=== PATIENT | male | born 1935 | race Caucasian/White ===

== ENCOUNTER → 2017-12-13 | Outpatient (CLI) | payer OTHER | END | disposition home or self-care (01) | LOC: C.LABPBG 11:27 | PROVIDERS: ATTEND Urology | DX: Z00.00 Encounter for general adult medical examination without abnormal findings (principal) ==

== ENCOUNTER 2023-06-08 09:07 | Observation (INO) ==
[2023-06-08 09:36] LABS: Basophils # (auto) 0.05 K/uL (0-0.2); Basophils % (auto) 0.5 %; Eosinophils # (auto) 0.25 K/uL (0-0.50); Eosinophils % (auto) 2.7 %; Hematocrit (blood only) 38.2 % (42.0-52.0); Hemoglobin 13.5 g/dl (14.0-18.0); Immature Granulocytes # (auto) 0.04 K/uL (0.01-0.20); Immature Granulocytes % (auto) 0.4 %; Lymphocytes # (auto) 2.39 K/uL (1.2-3.4); Lymphocytes % (auto) 25.6 %; Mean Corpuscular Hgb Conc 35.3 g/dL (32.0-36.0); Mean Corpuscular Volume 93.4 fL (80.0-100.0); Mean Platelet Volume 8.7 fL (9.4-12.4); Monocytes # (auto) 0.89 K/uL (0.11-0.59); Monocytes % (auto) 9.5 %; Neutrophils # (auto) 5.73 K/uL (1.40-6.50); Neutrophils % (auto) 61.3 %; Platelet Count 195 K/uL (130-400); RDW Coefficient of Variation 13.6 % (11.5-14.5); RDW Standard Deviation 46.3 fL (36.4-46.3); Red Blood Count 4.09 M/uL (4.70-6.10); White Blood Count 9.35 K/ul (4.8-10.8)
[2023-06-08 09:45] LABS: INR 1.5 (0.9-1.1); Prothrombin Time 15.8 Seconds (9.0-12.0)
--- NOTE | 2023-06-08 09:47 | XRay Report ---
SINGLE VIEW CHEST CLINICAL HISTORY: Dyspnea FINDINGS: An AP, portable, upright chest radiograph is compared to chest x-ray and chest CT dated 05/02. The patient is status post midline sternotomy. The heart is enlarged noting atherosclerotic ca lcification of the thoracic aorta. The pulmonary vasculature is noncongested. A large density along t he right superior mediastinal border corresponds to thyroid goiter when correlated with the recent est CT. There is bibasilar scarring/atelectasis. No airspace consolidation or large pleural effusion is identified. No pneumothorax is seen. The skeletal structures are osteopenic. The bony thorax is gr ossly intact. Surgical clips are noted in the upper abdomen. IMPRESSION: Cardiomegaly with no acute cardiopulmonary abnormality identified. ACT 112: Negative or not required by law. Electronically signed by: Washington Anna M.D. 06/08/2023 9:44 AM
[2023-06-08 09:51] LABS: Albumin Level 2.5 gm/dl (3.4-5.0); Bilirubin,Total 2.5 mg/dl (0.2-1.0); Potassium 3.8 mmol/L (3.5-5.1)
[2023-06-08] MEDS ORDERED: SODIUM CHLORIDE 0.9% 1000ML 500 ML IV ONE (09:52)
--- NOTE | 2023-06-08 09:54 | Emergency Department Note ---
Impression & Plan Edema ADMIT ED Provider Note HPI: The patient is an 87-year-old gentleman who presents emergency department with a chief complaint of abdominal bloating and lower extremity edema. Patient states that the symptoms seem to have been worsening over about the past 1 to 2 weeks. Patient was seen today by his hematology/oncology provider, Dr. Chavez, who noted concern about the patient's abdominal bloating and fluid retention and therefore sent the patient to the ED to be assessed. On arrival to the ED the patient is in no acute distress, he tells me that he has been having some issues recently after he eats he feels a sensation of bloating. On arrival here to the ED the patient is otherwise in no acute distress, he states he does get some shortness of breath when he ambulates but at baseline he does not feel shortness of breath. He denies any chest pain. Patient is otherwise hemodynamically stable on arrival ROS: - Per HPI Differential Diagnosis: Spontaneous bacterial peritonitis, anasarca, acute CHF exacerbation/pulmonary edema, amongst other potential pathologies. *Outpatient medications and allergy history reviewed. *Pertinent external medical records reviewed. PE: General: Alert HEENT: Normocephalic, trachea midline Eyes: Extraocular eye movement is intact, no scleral erythema Pulmonary: Clear to auscultation bilaterally, no wheezing Cardio: Regular rate and rhythm GI: Abdomen is soft to palpation, mild distention, nontender : No suprapubic tenderness MSK: No evidence of trauma or malformation of the extremities, 2-3+ LE edema b/l Skin: No evidence of rash Neuro: Alert, no focal deficits Psychiatric: Cooperative international controller: (As interpreted by myself): - An order was placed for continuous cardiac monitoring - Patient was noted to be in sinus rhythm with a rate of 90 EKG: (As interpreted by myself): Rate: 86 Rhythm: Normal sinus rhythm Intervals: Within normal limits ST changes: No ST elevation Time: 0918 Medical Decision Making: Patient is in no acute distress on arrival, IV was established and lab work ordered, 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 Lab work shows no leukocyto sis, hemoglobin is stable at 13.5, platelet count is normal, CMP does not show any critical findings, slight hyponatremia 133, bilirubin is elevated at 2.5 likely consistent with the patient's nonspecific liver lesions. BNP is mildly elevated at 135, troponin is negative, EKG shows normal sinus rhythm without any acute ischemic changes. Chest x-ray does not show any overt fluid overload, CT imaging of the abdomen pelvis was obtained that shows moderate ascites but no evidence of obstruction, no evidence of gastric outlet syndrome. I did touch base with the patient's hematology provider, Dr. Chavez, who made arrangements for intervention radiology to perform paracentesis while the patient is here as an inpatient for both diagnostic and therapeutic purposes. [facility] hospitalist service was consulted for admission, case was discussed with Terence Dunlap PA-C, and the patient was placed for admission in stable condition Consultants: - Hospitalist service, Dr. Alcala -Hematology, Dr. Chavez Disposition discussion held by myself with: Patient and family at bedside Diagnosis: 1. Peripheral edema, acute 2. Ascites, acute 3. Dyspnea on exertion 4. Hyponatremia, mild 5. Liver lesions, nonspecific Disposition: Admission Black Liang DO Emergency Medicine Past Med/Surg History Medical History Hypertension Surgical History History of appendectomy S/P CABG (coronary artery bypass graft) Social History Smoking Status: Never smoker Hx Alcohol Use: Yes Alcohol type: beer Hx Substance Use: No Preferred Language: Polish Communication Ability: Effective Finisher Map And Chart Required: No Beliefs That Will Affect Care: None Current Living Situation: Spouse Feels Safe at Home: Yes Allergies Allergies Allergy/AdvReac Type Severity Reaction Status Date / Time oxycodone [From OxyContin] AdvReac Intermediate Vomiting Verified 06/08/23 09:38 Home Meds Home Medications Medication Instructions Recorded Confirmed aspirin 81 mg tablet,delayed 162 mg PO HS 04/12/23 06/08/23 release cholecalciferol (vitamin D3) 50 50 mcg PO DAILY 04/12/23 06/08/23 mcg (2,000 unit) capsule (Vitamin D3) losartan 25 mg tablet 25 mg PO QAM 04/12/23 06/08/23 simvastatin 10 mg tablet 10 mg PO HS 04/12/23 06/08/23 furosemide 20 mg tablet 20 mg PO DAILY 05/02/23 06/08/23 lorazepam 1 mg tablet 1 mg PO HS PRN Sleep 06/08/23 06/08/23 Results & Data (ED) Vital Signs Vital Signs - 24 hr 06/08/23 09:08 06/08/23 09:19 06/08/23 09:27 Temperature 36.8 C Temperature Source Temporal Artery Scan Pulse Rate 91 H 89 Pulse Rate [Left Apical] 88 Pulse Rate from SpO2 Sensor Pulse Rhythm Regular Regular Pulse Rhythm [Left Apical] Regular Pulse Strength [Left Apical] Normal Respiratory Rate 20 16 Respiratory Effort / Characteristics Non-Labored Spontaneous Non-Labored Spontaneous Respiratory Depth Normal Normal Respiratory Pattern Regular Blood Pressure 110/58 L Blood Pressure [Right Arm] 127/59 L Blood Pressure Mean 75 Blood Pressure Mean [Right Arm] 81 Blood Pressure Position [Right Arm] Semi-fowlers Pulse Oximetry 94 94 95 Oxygen Delivery Method Room Air Room Air Sepsis Recent Fever Within 48 Hours No Sepsis New/Unexplained Change in Mental Status No Sepsis Action Taken by Nursing No Action Required 06/08/23 09:26 06/08/23 09:21 06/08/23 09:23 Temperature Temperature Source Pulse Rate 92 H 92 H 89 Pulse Rate [Left Apical] Pulse Rate from SpO2 Sensor 91 H 89 Pulse Rhythm Pulse Rhythm [Left Apical] Pulse Strength [Left Apical] Respiratory Rate 19 16 Respiratory Effort / Characteristics Respiratory Depth Respiratory Pattern Blood Pressure 127/59 L Blood Pressure [Right Arm] Blood Pressure Mean 81 Blood Pressure Mean [Right Arm] Blood Pressure Position [Right Arm] Pulse Oximetry 94 94 Oxygen Delivery Method Sepsis Recent Fever Within 48 Hours Sepsis New/Unexplained Change in Mental Status Sepsis Action Taken by Nursing 06/08/23 09:30 06/08/23 10:00 06/08/23 10:30 Temperature Temperature Source Pulse Rate 86 87 Pulse Rate [Left Apical] Pulse Rate from SpO2 Sensor 87 87 85 Pulse Rhythm Pulse Rhythm [Left Apical] Pulse Strength [Left Apical] Respiratory Rate 14 19 Respiratory Effort / Characteristics Respiratory Depth Respiratory Pattern Blood Pressure 119/60 120/62 130/66 Blood Pressure [Right Arm] Blood Pressure Mean 79 81 87 Blood Pressure Mean [Right Arm] Blood Pressure Position [Right Arm] Pulse Oximetry 94 91 96 Oxygen Delivery Method Sepsis Recent Fever Within 48 Hours Sepsis New/Unexplained Change in Mental Status Sepsis Action Taken by Nursing 06/08/23 10:50 06/08/23 11:00 06/08/23 11:00 Temperature Temperature Source Pulse Rate 86 88 Pulse Rate [Left Apical] Pulse Rate from SpO2 Sensor 85 87 Pulse Rhythm Pulse Rhythm [Left Apical] Pulse Strength [Left Apical] Respiratory Rate 15 21 Respiratory Effort / Characteristics Respiratory Depth Respiratory Pattern Blood Pressure 120/62 Blood Pressure [Right Arm] Blood Pressure Mean 98 Blood Pressure Mean [Right Arm] Blood Pressure Position [Right Arm] Pulse Oximetry 94 93 Oxygen Delivery Method Sepsis Recent Fever Within 48 Hours Sepsis New/Unexplained Change in Mental Status Sepsis Action Taken by Nursing 06/08/23 11:10 Temperature Temperature Source Pulse Rate 87 Pulse Rate [Left Apical] Pulse Rate from SpO2 Sensor 87 Pulse Rhythm Pulse Rhythm [Left Apical] Pulse Strength [Left Apical] Respiratory Rate 17 Respiratory Effort / Characteristics Respiratory Depth Respiratory Pattern Blood Pressure Blood Pressure [Right Arm] Blood Pressure Mean Blood Pressure Mean [Right Arm] Blood Pressure Position [Right Arm] Pulse Oximetry 93 Oxygen Delivery Method Sepsis Recent Fever Within 48 Hours Sepsis New/Unexplained Change in Mental Status Sepsis Action Taken by Nursing Laboratory Data 06/08/23 09:22 06/08/23 09:22 Lab Results 06/08/23 06/08/23 06/08/23 Range/Units 09:22 09:22 09:22 WBC 9.35 (4.8-10.8) K/ul RBC 4.09 L (4.70-6.10) M/uL Hgb 13.5 L (14.0-18.0) g/dl Hct 38.2 L (42.0-52.0) % MCV 93.4 (80.0-100.0) fL MCH 33.0 (25.0-34.0) pg MCHC 35.3 (32.0-36.0) g/dL RDW Std Deviation 46.3 (36.4-46.3) fL RDW Coeff of Maura 13.6 (11.5-14.5) % Plt Count 195 (130-400) K/uL MPV 8.7 L (9.4-12.4) fL Immature Gran % (Auto) 0.4 % Neut % (Auto) 61.3 % Lymph % (Auto) 25.6 % [place] % (Auto) 9.5 % Eos % (Auto) 2.7 % Baso % (Auto) 0.5 % Neut # (Auto) 5.73 (1.40-6.50) K/uL Lymph # (Auto) 2.39 (1.2-3.4) K/uL [place] # (Auto) 0.89 H (0.11-0.59) K/uL Eos # (Auto) 0.25 (0-0.50) K/uL Baso # (Auto) 0.05 (0-0.2) K/uL Immature Gran # (Auto) 0.04 (0.01-0.20) K/uL PT 15.8 H (9.0-12.0) Seconds INR 1.5 H (0.9-1.1) Sodium 133 L (136-145) mmol/L Potassium 3.8 (3.5-5.1) mmol/L Chloride 104 (98-107) mmol/L Carbon Dioxide 25 (21-32) mmol/L Anion Gap 4 (3-11) BUN 18 (6-23) mg/dl Creatinine 1.11 (0.6-1.4) mg/dl Est Cr Clr Drug Dosing 58.2 ml/min Est GFR ( Amer) 69.3 ml/min Est GFR (Non-Af Amer) 59.8 ml/min BUN/Creatinine Ratio 16.2 (10-20) Glucose 136 H (70-99(Fasting)) mg/dl Calcium 8.0 L (8.6-10.3) mg/dl Total Bilirubin 2.5 H (0.2-1.0) mg/dl AST 22 (13-39) U/L ALT 29 (7-52) U/L Alkaline Phosphatase 103 (34-104) U/L Troponin I High Sens 10.5 (0-20) pg/ml B-Natriuretic Peptide (0-100) pg/ml Total Protein 5.0 L (6.0-8.3) gm/dl Albumin 2.5 L (3.4-5.0) gm/dl Globulin 2.5 (2.5-4.0) gm/dl Albumin/Globulin Ratio 1.0 (0.9-2) 06/08/23 Range/Units 09:22 WBC (4.8-10.8) K/ul RBC (4.70-6.10) M/uL Hgb (14.0-18.0) g/dl Hct (42.0-52.0) % MCV (80.0-100.0) fL MCH (25.0-34.0) pg MCHC (32.0-36.0) g/dL RDW Std Deviation (36.4-46.3) fL RDW Coeff of Maura (11.5-14.5) % Plt Count (130-400) K/uL MPV (9.4-12.4) fL Immature Gran % (Auto) % Neut % (Auto) % Lymph % (Auto) % [place] % (Auto) % Eos % (Auto) % Baso % (Auto) % Neut # (Auto) (1.40-6.50) K/uL Lymph # (Auto) (1.2-3.4) K/uL [place] # (Auto) (0.11-0.59) K/uL Eos # (Auto) (0-0.50) K/uL Baso # (Auto) (0-0.2) K/uL Immature Gran # (Auto) (0.01-0.20) K/uL PT (9.0-12.0) Seconds INR (0.9-1.1) Sodium (136-145) mmol/L Potassium (3.5-5.1) mmol/L Chloride (98-107) mmol/L Carbon Dioxide (21-32) mmol/L Anion Gap (3-11) BUN (6-23) mg/dl Creatinine (0.6-1.4) mg/dl Est Cr Clr Drug Dosing ml/min Est GFR ( Amer) ml/min Est GFR (Non-Af Amer) ml/min BUN/Creatinine Ratio (10-20) Glucose (70-99(Fasting)) mg/dl Calcium (8.6-10.3) mg/dl Total Bilirubin (0.2-1.0) mg/dl AST (13-39) U/L ALT (7-52) U/L Alkaline Phosphatase (34-104) U/L Troponin I High Sens (0-20) pg/ml B-Natriuretic Peptide 135 H (0-100) pg/ml Total Protein (6.0-8.3) gm/dl Albumin (3.4-5.0) gm/dl Globulin (2.5-4.0) gm/dl Albumin/Globulin Ratio (0.9-2) Administered Medications Discontinued Medications Sodium Chloride (Nss 1000ml) 500 mls @ 999 mls/hr IV .Q31M ONE Stop: 06/08/23 10:22 Last Infusion: 06/08/23 10:28 Dose: 0 mls/hr Documented By: Admin: 06/08/23 10:02 Dose: 999 mls/hr Documented By: AN Ioversol (Optiray 350 500ml) 90 ml IV ONCE ONE Stop: 06/08/23 10:22 Last Admin: 06/08/23 10:22 Dose: 90 ml Documented By: SYDNEY Imaging Data Radiologist's Impression: Chest X-Ray 06/08/23 09:19 SINGLE VIEW CHEST CLINICAL HISTORY: Dyspnea FINDINGS: An AP, portable, upright chest radiograph is compared to chest x-ray and chest CT dated 05/02/2023. The patient is status post midline sternotomy. The heart is enlarged noting atherosclerotic calcification of the thoracic aorta. The pulmonary vasculature is noncongested. A large density along the right s uperior mediastinal border corresponds to thyroid goiter when correlated with the recent chest CT. There is bibasilar scarring/atelectasis. No airspace consolidation or large pleural effusion is identified. No pneumothorax is seen. The skeletal structures are osteopenic. The bony thorax is grossly intact. Surgical clips are noted in the upper abdomen. IMPRESSION: Cardiomegaly with no acute cardiopulmonary abnormality identified. ACT 112: Negative or not required by law. Electronically signed by: Washington Anna M.D. 06/08/2023 9:44 AM Abdomen/Pelvis CT 06/08/23 09:51 CT SCAN OF THE ABDOMEN AND PELVIS WITH IV CONTRAST CLINICAL HISTORY: Upper abdominal pain. Liver lesions. COMPARISON STUDY: Abdominal CT dated 05/02/2023. Abdominal MRI dated 05/13/2023. TECHNIQUE: Following the IV administration of 90 of Optiray 350, CT scan of the abdomen and pelvis was performed from the lung bases to the proximal femora. Images are reviewed in the axial, sagittal, and coronal planes. IV contrast was administered without complication. A dose lowering technique was utilized adhering to the principles of ALARA. CT DOSE: 1548.37 mGy.cm FINDINGS: Lower chest: The patient is status post midline sternotomy. The heart is enlarged and without pericardial effusion. The coronary arteries are densely calcified. There is a small left pleural effusion with left basilar atelectasis. No airspace consolidation is seen typical for pneumonia. A fat-containing Kostas chdalek hernia is seen on the right. Liver: The contrast-enhanced liver is enlarged, measuring 19.8 cm in length. Hepatic attenuation is markedly heterogeneous. Nodularity of the surface contour indicates morphologic changes of cirrhosis. There is minimal central intrahepat ic biliary ductal dilatation. The hepatic veins and portal veins are patent. Numerous hepatic mass lesions are again suggested. Gallbladder: Surgically absent noting clips in the gallbladder fossa. Spleen: Normal in size and attenuation. Pancreas: Unremarkable. Adrenal glands: Unremarkable. Kidneys: The contrast enhanced kidneys demonstrate mild cortical atrophy and are without hydronephrosis. The kidneys enhance symmetrically. Scattered subcentimeter cortical hypodensities likely represent cysts but are too small for definitive characterization. Abdominal vasculature: The abdominal aorta is normal in course and caliber noting moderate atherosclerotic calcification. Bowel: Numerous surgical clips are seen around the stomach. There is no bowel obstruction. There is moderate to advanced colonic diverticulosis without CT evidence of acute diverticulitis. Mild fecal retention is seen throughout the colon. The appendix is not identified and reported surgically absent. Peritoneum: There is a moderate volume of abdominopelvic ascites. Nodular peritoneal free air is seen. There is a small fat-containing umbilical hernia. Lymphadenopathy: None. Pelvic viscera: The prostate gland is enlarged and heterogeneous noting median lobe hypertrophy. The bladder wall is thickened/trabeculated indicating chronic outlet obstruction. There is a fat-containing right inguinal hernia, as well as evidence of previous right inguinal herniorrhaphy. Skeletal structures: The skeletal structures are osteopenic. There is mild to moderate lumbosacral spondylosis. No lytic or blastic lesions are seen. Soft tissues: There is mild body wall edema. IMPRESSION: 1. No acute infectious or inflammatory findings are identified in the abdomen or pelvis. 2. Cardiomegaly and small left pleural effusion. 3. The liver is enlarged, markedly heterogeneous, and shows morphologic changes of cirrhosis. 4. Numerous mass lesions are again suggested throughout the liver. Tissue sampling will likely be required for definitive characterization. 5. Moderate volume of abdominopelvic ascites. 6. Colonic diverticulosis without CT evidence of acute diverticulitis. 7. Additional findings as above. ACT 112: Negative or not required by law. Electronically signed by: Washington Anna M.D. 06/08/2023 10:37 AM Discharge Plan Visit Data Chief Complaint: Referred by Doctor Stated Complaint: SOB, B/L EDEMA, DR. CHAVEZ REFERRED ED Provider: Black Liang Discharge Problem: Edema Forms Stand Alone Forms: My [facility] Prescriptions Prescriptions: No Action furosemide 20 mg tablet 20 mg PO DAILY lorazepam 1 mg tablet 1 mg PO HS PRN (Reason: Sleep) simvastatin 10 mg tablet 10 mg PO HS aspirin 81 mg Tablet,Delayed Release (Dr/Ec) 162 mg PO HS losartan 25 mg tablet 25 mg PO QAM cholecalciferol (vitamin D3) [Vitamin D3] 50 mcg (2,000 unit) Capsule 50 mcg PO DAILY Referrals Referrals: Rusty Willis MD [Primary Care Provider] -
[2023-06-08 09:57] LABS: BUN Creatinine Ratio 16.2 (10-20); Creatinine Clr Calc Pharmacy 58.2 ml/min; Est GFR (African American) 69.3 ml/min; Est GFR (Non-African American) 59.8 ml/min; Globulin 2.5 gm/dl (2.5-4.0)
[2023-06-08 10:02] LABS: Troponin I High Sensitivity 10.5 pg/ml (0-20)
[2023-06-08] MEDS ORDERED: OPTIRAY 350 500ml IV ONE (10:21)
--- NOTE | 2023-06-08 10:39 | CT Scan Report ---
CT SCAN OF THE ABDOMEN AND PELVIS WITH IV CONTRAST CLINICAL HISTORY: Upper abdominal pain. Liver lesions. COMPARISON STUDY: Abdominal CT dated 05/02/2023. Abdominal MRI dated 05/13/2023. TECHNIQUE: Following the IV administration of 90 of Optiray 350, CT scan of the abdomen and pelvis wa s performed from the lung bases to the proximal femora. Images are reviewed in the axial, sagittal, a nd coronal planes. IV contrast was administered without complication. A dose lowering technique was u tilized adhering to the principles of ALARA. CT DOSE: 1548.37 mGy.cm FINDINGS: Lower chest: The patient is status post midline sternotomy. The heart is enlarged and without pericar dial effusion. The coronary arteries are densely calcified. There is a small left pleural effusion wi th left basilar atelectasis. No airspace consolidation is seen typical for pneumonia. A fat-containin g Bochdalek hernia is seen on the right. Liver: The contrast-enhanced liver is enlarged, measuring 19.8 cm in length. Hepatic attenuation is m arkedly heterogeneous. Nodularity of the surface contour indicates morphologic changes of cirrhosis. There is minimal central intrahepatic biliary ductal dilatation. The hepatic veins and portal veins a re patent. Numerous hepatic mass lesions are again suggested. Gallbladder: Surgically absent noting clips in the gallbladder fossa. Spleen: Normal in size and attenuation. Pancreas: Unremarkable. Adrenal glands: Unremarkable. Kidneys: The contrast enhanced kidneys demonstrate mild cortical atrophy and are without hydronephros is. The kidneys enhance symmetrically. Scattered subcentimeter cortical hypodensities likely represen t cysts but are too small for definitive characterization. Abdominal vasculature: The abdominal aorta is normal in course and caliber noting moderate atheroscle rotic calcification. Bowel: Numerous surgical clips are seen around the stomach. There is no bowel obstruction. There is m oderate to advanced colonic diverticulosis without CT evidence of acute diverticulitis. Mild fecal re tention is seen throughout the colon. The appendix is not identified and reported surgically absent. Peritoneum: There is a moderate volume of abdominopelvic ascites. Nodular peritoneal free air is seen . There is a small fat-containing umbilical hernia. Lymphadenopathy: None. Pelvic viscera: The prostate gland is enlarged and heterogeneous noting median lobe hypertrophy. The bladder wall is thickened/trabeculated indicating chronic outlet obstruction. There is a fat-containi ng right inguinal hernia, as well as evidence of previous right inguinal herniorrhaphy. Skeletal structures: The skeletal structures are osteopenic. There is mild to moderate lumbosacral sp ondylosis. No lytic or blastic lesions are seen. Soft tissues: There is mild body wall edema. IMPRESSION: 1. No acute infectious or inflammatory findings are identified in the abdomen or pelvis. 2. Cardiomegaly and small left pleural effusion. 3. The liver is enlarged, markedly heterogeneous, and shows morphologic changes of cirrhosis. 4. Numerous mass lesions are again suggested throughout the liver. Tissue sampling will likely be req uired for definitive characterization. 5. Moderate volume of abdominopelvic ascites. 6. Colonic diverticulosis without CT evidence of acute diverticulitis. 7. Additional findings as above. ACT 112: Negative or not required by law. Electronically signed by: Washington Anna M.D. 06/08/2023 10:37 AM
--- NOTE | 2023-06-08 11:54 | History & Physical Report ---
Date of Service June 08, 2023 Assessment & Plan (1) Abdominal ascites: Plan: -Admit to med/surge -Currently stable -[facility] due to concerns for worsening ascites, need for paracentesis, and concerns of hypotension post paracentesis with starting spironolactone -Labs are stable overall, CT of the abd/pelvis today show known cirrhosis of the liver, liver masses, and moderate ascites -Patient is asymptomatic and without signs, symptoms, or labs to suggest SBP at this time -Will defer additional fluid studies to Dr. Chavez at this time -Will hold chemical DVT PPX in preparation for paracentesis later today, BL TEDs for now -Clear liquids until paracentesis then advance as tolerated -AM CBC, CMP, Mag, PT/INR (2) Cirrhosis of liver: Plan: -Stable -No signs of encephalopathy or significant decompensation -Will obtain paracentesis later today -Will start 25 mg PO Spironolactone tomorrow am -Had his am dose of lasix today, will start 40 mg PO daily tomorrow -Hold losartan to prevent hypotension -Avoid nephrotoxic agents (3) Bilateral edema of lower extremity: Plan: -Likely due to his known cirrhosis -Monitor for improvement after paracentesis, increased diuretic dosing, and BL DALE's (4) Liver masses: Plan: -Continue to follow with (5) Hypertension: Plan: -Hold losartan to prevent hypotension -It appears that the patient has been experiencing mild orthostasis over the past year while on losartan, would recommend discontinuing to prevent further hypotension on DC (6) S/P CABG (coronary artery bypass graft): Plan: -Stable -Continue aspirin Plan The patient was discussed with Dr. Alcala at the time of the admission History of Present Illness Chief Complaint: Need for paracentesis Primary Care Provider: Rusty Willis MD Kb is an 87 year old male with a PMH significant for CAD S/P CABG x 4 approximately 30 years ago, HTN, hyperlipidemia, and known liver masses with cirrhotic morphology of the liver who presented to the [facility] at the recommendation of Dr. Chavez due to needing a pa racentesis. In the ED the patient was noted to be stable. Labs were significant for an INR of 1.5, sodium of 133, total bili of 2.5, corrected calcium of 9.2. Chest xray was read as "Cardiomegaly with no acute cardiopulmonary abnormality identified.". CT of the abdomen or pelvis with IV con was read as "1. No acute infectious or inflammatory findings are identified in the abdomen or pelvis. 2. Cardiomegaly and small left pleural effusion. 3. The liver is enlarged, markedly heterogeneous, and shows morphologic changes of cirrhosis. 4. Numerous mass lesions are again suggested throughout the liver. Tissue sampling will likely be required for definitive characterization. 5. Moderate volume of abdominopelvic ascites. 6. Colonic diverticulosis without CT evidence of acute diverticulitis. 7. Additional findings as above.". At the time of the exam the patient was lying in bed in no acute distress with his family sitting bedside, history was obtained from all. The patient has been undergoing an extensive workup for his known liver masses. He had a paracentesis on 05/12 which removed approximately 800 mL of cloudy yellow ascitic fluid; review of the cultured fluids shows no growth. He also underwent biopsy of his hepatic lesions which was sent to the [facility] for further evaluation. He states that his abdomen has been getting progressively more full since his last paracentesis. He denies any complications after the first paracentesis. He states that he has not taken his losartan over the past 2-3 days as his systolic BP has been in the low 100's. When asked, he notes mild dizziness while going from lying to sitting, and sitting to standing. He denies syncope and states that these symptoms quickly resolve with rest. He has still been taking his lasix daily. He and his family would prefer he be observed overnight after his paracentesis and while starting spironolactone in case he becomes hypotensive. He notes some early satiety recenty with his enlarged abdomen but denies any dysphagia and vomiting. He feels as though his LE's have been more swollen as well. He denies recent fever, chills, chest pain, cough, SOB, abd pain, nasuea, vomiting, dysuria, hematuria melena, bloody BM's, and recent trauma. We discussed code status, he wishes to be a conditional code with a trial of intubation only in the event of respiratory failure. He would not want CPR or Defibrillation in the event of cardiac arrest. Please refer to Dr. Alcala's attestation for any changes to the treatment plan Allergies Allergy/AdvReac Type Severity Reaction Status Date / Time oxycodone [From OxyContin] AdvReac Intermediate Vomiting Verified 06/08/23 09:38 Home Medications Medication Instructions Recorded Confirmed Type aspirin 81 mg tablet,delayed 162 mg PO HS 04/12/23 06/08/23 History release cholecalciferol (vitamin D3) 50 50 mcg PO DAILY 04/12/23 06/08/23 History mcg (2,000 unit) capsule (Vitamin D3) losartan 25 mg tablet 25 mg PO QAM 04/12/23 06/08/23 History simvastatin 10 mg tablet 10 mg PO HS 04/12/23 06/08/23 History furosemide 20 mg tablet 20 mg PO DAILY 05/02/23 06/08/23 History lorazepam 1 mg tablet 1 mg PO HS PRN Sleep 06/08/23 06/08/23 History Past Med/Surg History Medical History (Updated 06/08/23 @ 12:22 by Terence Dunlap PA-C) Hypertension Surgical History (Updated 06/08/23 @ 12:22 by Terence Dunlap PA-C) History of appendectomy S/P CABG (coronary artery bypass graft) Social History Smoking Status: Never smoker Hx Alcohol Use: Yes Alcohol type: beer Hx Substance Use: No Preferred Language: Palestinian Communication Ability: Effective Assembling Fabricator Required: No Beliefs That Will Affect Care: None Current Living Situation: Spouse Feels Safe at Home: Yes Physical Exam Physical Exam: Physical Exam: General: In no acute distress, stated age, well-nourished, good hygiene, non- toxic appearing HEENT: Normocephalic, atraumatic, no scleral icterus, pupils around round, symmetrical, and reactive to light, moist mucus membranes, trachea midline, no thyromegaly Chest/Pulm: No respiratory distress, symmetrical chest expansion, clear breath sounds throughout Cardiac: RRR, no murmurs noted Abdomen: Mild-moderate ascites without bruising, normoactive bowel sounds, soft, non-tender to palpation throughout Musculoskeletal: Symmetrical and without signs of acute trauma, upper and lower extremities with full ROM, no atrophy, spasticity, or flaccidity Extremities: Radial, dorsalis pedis, and posterior tibial pulses are intact and symmetrical, 2+ pitting edema noted in the BL LE's Skin: Warm, dry, no rashes , lesions, or scars noted Neuro: Alert and oriented to person, place, month, year, and president, no focal defects, no tremors noted Psych: No acute distress, calm and cooperative during the exam Results & Data Results & Data Vital Signs (Past 12 Hours) Vital Signs Temp Pulse Pulse Resp BP BP Pulse Ox 06/08/23 11:10 87 17 93 06/08/23 11:00 88 21 93 06/08/23 11:00 120/62 06/08/23 10:50 86 15 94 06/08/23 10:30 130/66 96 06/08/23 10:00 87 19 120/62 91 06/08/23 09:30 86 14 119/60 94 06/08/23 09:23 89 16 127/59 L 94 06/08/23 09:21 92 H 19 94 06/08/23 09:26 92 H 06/08/23 09:27 88 16 127/59 L 95 06/08/23 09:19 89 94 06/08/23 09:08 36.8 C 91 H 20 110/58 L 94 O2 Del Method 06/08/23 11:10 06/08/23 11:00 06/08/23 11:00 06/08/23 10:50 06/08/23 10:30 06/08/23 10:00 06/08/23 09:30 06/08/23 09:23 06/08/23 09:21 06/08/23 09:26 06/08/23 09:27 Room Air 06/08/23 09:19 Room Air 06/08/23 09:08 Laboratory Results Abnormal lab results 06/08/23 06/08/23 06/08/23 Range/Units 09:22 09:22 09:22 RBC 4.09 L (4.70-6.10) M/uL Hgb 13.5 L (14.0-18.0) g/dl Hct 38.2 L (42.0-52.0) % MPV 8.7 L (9.4-12.4) fL [place] # (Auto) 0.89 H (0.11-0.59) K/uL PT 15.8 H (9.0-12.0) Seconds INR 1.5 H (0.9-1.1) Sodium 133 L (136-145) mmol/L Glucose 136 H (70-99(Fasting)) mg/dl Calcium 8.0 L (8.6-10.3) mg/dl Total Bilirubin 2.5 H (0.2-1.0) mg/dl B-Natriuretic Peptide (0-100) pg/ml Total Protein 5.0 L (6.0-8.3) gm/dl Albumin 2.5 L (3.4-5.0) gm/dl 06/08/23 Range/Units 09:22 RBC (4.70-6.10) M/uL Hgb (14.0-18.0) g/dl Hct (42.0-52.0) % MPV (9.4-12.4) fL [place] # (Auto) (0.11-0.59) K/uL PT (9.0-12.0) Seconds INR (0.9-1.1) Sodium (136-145) mmol/L Glucose (70-99(Fasting)) mg/dl Calcium (8.6-10.3) mg/dl Total Bilirubin (0.2-1.0) mg/dl B-Natriuretic Peptide 135 H (0-100) pg/ml Total Protein (6.0-8.3) gm/dl Albumin (3.4-5.0) gm/dl Diagnostic Findings Chest X-Ray 06/08/23 09:19 SINGLE VIEW CHEST CLINICAL HISTORY: Dyspnea FINDINGS: An AP, portable, upright chest radiograph is compared to chest x-ray and chest CT dated 05/02/2023. The patient is status post midline sternotomy. The heart is enlarged noting atherosclerotic calcification of the thoracic aorta. The pulmonary vasculature is noncongested. A large density along the right superior mediastinal border corresponds to thyroid goiter when correlated with the recent chest CT. There is bibasilar scarring/atelectasis. No airspace consolidation or large pleural effusion is identified. No pneumothorax is seen. The skeletal structures are osteopenic. The bony thorax is grossly intact. Surgical clips are noted in the upper abdomen. IMPRESSION: Cardiomegaly with no acute cardiopulmonary abnormality identified. ACT 112: Negative or not required by law. Electronically signed by: [place] Anna M.D. 06/08/2023 9:44 AM Abdomen/Pelvis CT 06/08/23 09:51 CT SCAN OF THE ABDOMEN AND PELVIS WITH IV CONTRAST CLINICAL HISTORY: Upper abdominal pain. Liver lesions. COMPARISON STUDY: Abdominal CT dated 05/02/2023. Abdominal MRI dated 05/13/2023. TECHNIQUE: Following the IV administration of 90 of Optiray 350, CT scan of the abdomen and pelvis was performed from the lung bases to the proximal femora. Images are reviewed in the axial, sagittal, and coronal planes. IV contrast was administered without complication. A dose lowering technique was utilized adhering to the principles of ALARA. CT DOSE: 1548.37 mGy.cm FINDINGS: Lower chest: The patient is status post midline sternotomy. The heart is enlarged and without pericardial effusion. The coronary arteries are densely calcified. There is a small left pleural effusion with left basilar atelectasis. No airspace consolidation is seen typical for pneumonia. A fat-containing Bochdalek hernia is seen on the right. Liver: The contrast-enhanced liver is enlarged, measuring 19.8 cm in length. Hepatic attenuation is markedly heterogeneous. Nodularity of the surface contour indicates morphologic changes of cirrhosis. There is minimal central intrahepatic biliary ductal dilatation. The hepatic veins and portal veins are patent. Numerous hepatic mass lesions are again suggested. Gallbladder: Surgically absent noting clips in the gallbladder fossa. Spleen: Normal in size and attenuation. Pancreas: Unremarkable. Adrenal glands: Unremarkable. Kidneys: The contrast enhanced kidneys demonstrate mild cortical atrophy and are without hydronephrosis. The kidneys enhance symmetrically. Scattered subcentimeter cortical hypodensities likely represent cysts but are too small for definitive characterization. Abdominal vasculature: The abdominal aorta is normal in course and caliber noting moderate atherosclerotic calcification. Bowel: Numerous surgical clips are seen around the stomach. There is no bowel obstruction. There is moderate to advanced colonic diverticulosis without CT evidence of acute diverticulitis. Mild fecal retention is seen throughout the colon. The appendix is not identified and reported surgically absent. Peritoneum: There is a moderate volume of abdominopelvic ascites. Nodular peritoneal free air is seen. There is a small fat-containing umbilical hernia. Lymphadenopathy: None. Pelvic viscera: The prostate gland is enlarged and heterogeneous noting median lobe hypertrophy. The bladder wall is thickened/trabeculated indicating chronic outlet obstruction. There is a fat-containing right inguinal hernia, as well as evidence of previous right inguinal herniorrhaphy. Skeletal structures: The skeletal structures are osteopenic. There is mild to moderate lumbosacral spondylosis. No lytic or blastic lesions are seen. Soft tissues: There is mild body wall edema. IMPRESSION: 1. No acute infectious or inflammatory findings are identified in the abdomen or pelvis. 2. Cardiomegaly and small left pleural effusion. 3. The liver is enlarged, markedly heterogeneous, and shows morphologic changes of cirrhosis. 4. Numerous mass lesions are again suggested throughout the liver. Tissue sampling will likely be required for definitive characterization. 5. Moderate volume of abdominopelvic ascites. 6. Colonic diverticulosis without CT evidence of acute diverticulitis. 7. Additional findings as above. ACT 112: Negative or not required by law. Electronically signed by: [place] Anna M.D. 06/08/2023 10:37 AM ECG Additional Comments: Normal sinus rhythm Incomplete right bundle branch block Minimal voltage criteria for LVH, may be normal variant Lateral infarct , age undetermined Abnormal ECG When compared with ECG of 02-MAY-2023 14:24, Incomplete right bundle branch block is now Present Lateral infarct is now Present Confirmed by Santino Do ([id number]) on 06/08/2023 12:03:57 PM Code Status & VTE Plan Code Status Conditional; no CPR or defibrillation in the event of Cardiac arrest; would want a trial of intubation in the event of respiratory failure VTE Prophylaxis Plan VTE Prophylaxis will be ordered: Yes Supervising Physician Co-Signing Physician Notes I personally saw and examined the patient. I verified all glaser points and agree with Terence Dunlap PA-C with the following exceptions and/or additions: 87 year old male presents to the ER from oncology due to pedal edema and ascites with concerns for low BP if he was to have this outpatient. Known liver masses with diagnosis pending. AFP normal. O/E A&Ox3, HS RRR, no murmurs, Chest CTAB, Abdo distended but soft non-tender, no CVA tenderness, 3+ b/l pitting edema equal bilaterally A/P Ascites - secondary to liver masses (unknown diagnosis, liver biopsy sent to [facility]), IR paracentesis with maximum 4L fluid to be removed - Dr Chavez requested fluid to be sent for cytology. Increase Lasix to 40mg PO daily starting tomorrow with spironolactone 25mg PO daily PG Care Time/CCT Total # of Minutes Spent Total Time Spent with Patient: Total time spent is greater than 50% in coordination of care (as documented) at patient's floor/unit and/or counseling patient: Coding [place] [address] INT INP/OBS CARE 2/55MIN Patient Type Established Medical Decision Making High Complexity Diagnoses Abdominal ascites R18.0 Ascites type: malignant Cirrhosis of liver K74.60 Bilateral edema of lower extremity R60.0 Liver masses R16.0 Hypertension I10 S/P CABG (coronary artery bypass graft) Z95.1 (1) Abdominal ascites Ascites type: malignant Qualified Code(s): R18.0 - Malignant ascites
--- NOTE | 2023-06-08 12:04 | Electrocardiogram Report ---
Test Reason : Blood Pressure : / mmHG Vent. Rate : 086 BPM Atrial Rate : 086 BPM P-R Int : 180 ms QRS Dur : 112 ms QT Int : 384 ms P-R-T Axes : 054 032 043 degrees QTc Int : 459 ms Normal sinus rhythm Incomplete right bundle branch block Minimal voltage criteria for LVH, may be normal variant Lateral infarct , age undetermined Abnormal ECG When compared with ECG of 02-MAY-2023 14:24, Incomplete right bundle branch block is now Present Lateral infarct is now Present Confirmed by Santino Do ([id number]) on 06/08/2023 12:03:57 PM Referred By: Confirmed By:Kieran Do
[2023-06-08 13:15] LABS: Appearance Urine Clear (Clear); Bacteria Urine Automated Negative (Negative); Bilirubin Urine Negative (Negative); Blood Urine Negative (Negative); Color Urine Dark Yellow; Glucose Urine UA Negative (Negative); Ketones Urine Negative (Negative); Leukocyte Esterase Urine Negative (Negative); Nitrite Urine Positive (Negative); Protein Urine Negative (Negative); RBC Urine Automated 0-4 /hpf (0-4); Specific Gravity Urine > 1.045 (1.000-1.030); Urobilinogen Urine Positive (Negative)
[2023-06-08] MEDS ORDERED: LORazepam 1 MG TAB PO PRN (14:33)
--- NOTE | 2023-06-08 16:03 | Ultrasound Report ---
Ultrasound-guided diagnostic paracentesis INDICATION: Ascites PROCEDURE: Procedure and risks were explained. Informed consent was obtained. A final timeout was com pleted. The left lower quadrant was prepped and draped in sterile fashion. 1% buffered lidocaine was utilized for skin anesthesia. Utilizing ultrasound guidance, a 5 Wolof safety centesis catheter was advanced into the pocket of tulio hernandez. Ultrasound images were obtained. A total of 2.7 L of a cloudy elzbieta-colored ascites fluid was removed, with 1 L sent to lab for analysis. The catheter was removed and Band-Aid applied. The patien t tolerated procedure well. Vital signs will be monitored post procedure. IMPRESSION: Paracentesis as above. Performed, dictated, and signed by Leonard Torres PA-C; to be co-signed by Dr. Danilo Leija. Electronically signed by: Danilo Leija M.D. 06/08/2023 4:07 PM
[2023-06-08] MEDS ORDERED: SIMVASTATIN 10 MG TAB PO SCH (21:00)
[2023-06-08] MEDS ORDERED: ASPIRIN 81 MG ECTAB PO SCH (21:00)
--- NOTE | 2023-06-09 07:48 | Hospitalist Progress Note ---
Date of Service June 09, 2023 Assessment & Plan (1) Abdominal ascites: Plan: -Admit to med/surge -Currently stable -[facility] due to concerns for worsening ascites, need for paracentesis, and concerns of hypotension post paracentesis with starting spironolactone -Labs are stable overall, CT of the abd/pelvis today show known cirrhosis of the liver, liver masses, and moderate ascites -Patient is asymptomatic and without signs, symptoms, or labs to suggest SBP at this time -Will defer additional fluid studies to Dr. Chavez at this time -Will hold chemical DVT PPX in preparation for paracentesis later today, BL TEDs for now -Clear liquids until paracentesis then advance as tolerated -AM CBC, CMP, Mag, PT/INR (2) Cirrhosis of liver: Plan: -Stable -No signs of encephalopathy or significant decompensation -Will obtain paracentesis later today -Will start 25 mg PO Spironolactone tomorrow am -Had his am dose of lasix today, will start 40 mg PO daily tomorrow -Hold losartan to prevent hypotension -Avoid nephrotoxic agents (3) Bilateral edema of lower extremity: Plan: -Likely due to his known cirrhosis -Monitor for improvement after paracentesis, increased diuretic dosing, and BL DALE's (4) Liver masses: Plan: -Continue to follow with (5) Hypertension: Plan: -Hold losartan to prevent hypotension -It appears that the patient has been experiencing mild orthostasis over the past year while on losartan, would recommend discontinuing to prevent further hypotension on DC (6) S/P CABG (coronary artery bypass graft): Plan: -Stable -Continue aspirin Plan The patient was discussed with Dr. Alcala at the time of the admission Admission and Anticipated Discharge Date Admission Date: June 08, 2023 Subjective Eval this morning, paracentesis yesterday. Feeling well, some discomfort but tolerating diuretics. Discussed possible dc later today after eval by therapy. Will plan for spironolactone/increased lasix and dc losartan at discharge. Questions/concerns addressed at this time. Results & Data Results & Data Vital Signs (Past 12 Hours) Vital Signs Temp Pulse Resp BP Pulse Ox O2 Del Method 06/09/23 07:00 36.7 C 102 H 15 114/66 94 Room Air 06/09/23 03:38 36.8 C 97 H 18 114/64 96 Room Air 06/08/23 22:40 36.8 C 86 16 118/65 96 Room Air Laboratory Results 06/08/23 06/08/23 06/08/23 Range/Units 12:48 09:22 09:22 WBC (4.8-10.8) K/ul RBC (4.70-6.10) M/uL Hgb (14.0-18.0) g/dl Hct (42.0-52.0) % MCV (80.0-100.0) fL MCH (25.0-34.0) pg MCHC (32.0-36.0) g/dL RDW Std Deviation (36.4-46.3) fL RDW Coeff of Maura (11.5-14.5) % Plt Count (130-400) K/uL MPV (9.4-12.4) fL Immature Gran % (Auto) % Neut % (Auto) % Lymph % (Auto) % [place] % (Auto) % Eos % (Auto) % Baso % (Auto) % Neut # (Auto) (1.40-6.50) K/uL Lymph # (Auto) (1.2-3.4) K/uL [place] # (Auto) (0.11-0.59) K/uL Eos # (Auto) (0-0.50) K/uL Baso # (Auto) (0-0.2) K/uL Immature Gran # (Auto) (0.01-0.20) K/uL PT (9.0-12.0) Seconds INR (0.9-1.1) Sodium 133 L (136-145) mmol/L Potassium 3.8 (3.5-5.1) mmol/L Chloride 104 (98-107) mmol/L Carbon Dioxide 25 (21-32) mmol/L Anion Gap 4 (3-11) BUN 18 (6-23) mg/dl Creatinine 1.11 (0.6-1.4) mg/dl Est Cr Clr Drug Dosing 58.2 ml/min Est GFR ( Amer) 69.3 ml/min Est GFR (Non-Af Amer) 59.8 ml/min BUN/Creatinine Ratio 16.2 (10-20) Glucose 136 H (70-99(Fasting)) mg/dl Calcium 8.0 L (8.6-10.3) mg/dl Total Bilirubin 2.5 H (0.2-1.0) mg/dl AST 22 (13-39) U/L ALT 29 (7-52) U/L Alkaline Phosphatase 103 (34-104) U/L Troponin I High Sens 10.5 (0-20) pg/ml B-Natriuretic Peptide 135 H (0-100) pg/ml Total Protein 5.0 L (6.0-8.3) gm/dl Albumin 2.5 L (3.4-5.0) gm/dl Globulin 2.5 (2.5-4.0) gm/dl Albumin/Globulin Ratio 1.0 (0.9-2) Urine Color Dark Yellow Urine Appearance Clear (Clear) Urine pH 6.0 (4.5-7.5) Ur Specific [place] > 1.045 H (1.000-1.030) Urine Protein Negative (Negative) Urine Glucose (UA) Negative (Negative) Urine Ketones Negative (Negative) Urine Blood Negative (Negative) Urine Nitrite Positive A (Negative) Urine Bilirubin Negative (Negative) Urine Urobilinogen Positive H (Negative) Ur Leukocyte Esterase Negative (Negative) Urine WBC (Auto) 1-5 (0-5) /hpf Urine RBC (Auto) 0-4 (0-4) /hpf U Hyaline Cast (Auto) 1-5 (0-5) /lpf U Epithel Cells (Auto) 5-10 H (0-5) /lpf Urine Bacteria (Auto) Negative (Negative) 06/08/23 06/08/23 Range/Units 09:22 09:22 WBC 9.35 (4.8-10.8) K/ul RBC 4.09 L (4.70-6.10) M/uL Hgb 13.5 L (14.0-18.0) g/dl Hct 38.2 L (42.0-52.0) % MCV 93.4 (80.0-100.0) fL MCH 33.0 (25.0-34.0) pg MCHC 35.3 (32.0-36.0) g/dL RDW Std Deviation 46.3 (36.4-46.3) fL RDW Coeff of Maura 13.6 (11.5-14.5) % Plt Count 195 (130-400) K/uL MPV 8.7 L (9.4-12.4) fL Immature Gran % (Auto) 0.4 % Neut % (Auto) 61.3 % Lymph % (Auto) 25.6 % [place] % (Auto) 9.5 % Eos % (Auto) 2.7 % Baso % (Auto) 0.5 % Neut # (Auto) 5.73 (1.40-6.50) K/uL Lymph # (Auto) 2.39 (1.2-3.4) K/uL [place] # (Auto) 0.89 H (0.11-0.59) K/uL Eos # (Auto) 0.25 (0-0.50) K/uL Baso # (Auto) 0.05 (0-0.2) K/uL Immature Gran # (Auto) 0.04 (0.01-0.20) K/uL PT 15.8 H (9.0-12.0) Seconds INR 1.5 H (0.9-1.1) Sodium (136-145) mmol/L Potassium (3.5-5.1) mmol/L Chloride (98-107) mmol/L Carbon Dioxide (21-32) mmol/L Anion Gap (3-11) BUN (6-23) mg/dl Creatinine (0.6-1.4) mg/dl Est Cr Clr Drug Dosing ml/min Est GFR ( Amer) ml/min Est GFR (Non-Af Amer) ml/min BUN/Creatinine Ratio (10-20) Glucose (70-99(Fasting)) mg/dl Calcium (8.6-10.3) mg/dl Total Bilirubin (0.2-1.0) mg/dl AST (13-39) U/L ALT (7-52) U/L Alkaline Phosphatase (34-104) U/L Troponin I High Sens (0-20) pg/ml B-Natriuretic Peptide (0-100) pg/ml Total Protein (6.0-8.3) gm/dl Albumin (3.4-5.0) gm/dl Globulin (2.5-4.0) gm/dl Albumin/Globulin Ratio (0.9-2) Urine Color Urine Appearance (Clear) Urine pH (4.5-7.5) Ur Specific [place] (1.000-1.030) Urine Protein (Negative) Urine Glucose (UA) (Negative) Urine Ketones (Negative) Urine Blood (Negative) Urine Nitrite (Negative) Urine Bilirubin (Negative) Urine Urobilinogen (Negative) Ur Leukocyte Esterase (Negative) Urine WBC (Auto) (0-5) /hpf Urine RBC (Auto) (0-4) /hpf U Hyaline Cast (Auto) (0-5) /lpf U Epithel Cells (Auto) (0-5) /lpf Urine Bacteria (Auto) (Negative) PG Care Time/CCT Total # of Minutes Spent Total Time Spent with Patient: Total time spent is greater than 50% in coordination of care (as documented) at patient's floor/unit and/or counseling patient: Coding Diagnoses Abdominal ascites R18.0 Ascites type: malignant Cirrhosis of liver K74.60 Bilateral edema of lower extremity R60.0 Liver masses R16.0 Hypertension I10 S/P CABG (coronary artery bypass graft) Z95.1 (1) Abdominal ascites Ascites type: malignant Qualified Code(s): R18.0 - Malignant ascites
[2023-06-09 08:42] LABS: Basophils # (auto) 0.05 K/uL (0-0.2); Basophils % (auto) 0.6 %; Eosinophils # (auto) 0.32 K/uL (0-0.50); Eosinophils % (auto) 3.9 %; Hematocrit (blood only) 36.2 % (42.0-52.0); Hemoglobin 12.7 g/dl (14.0-18.0); Immature Granulocytes # (auto) 0.03 K/uL (0.01-0.20); Immature Granulocytes % (auto) 0.4 %; Lymphocytes # (auto) 2.22 K/uL (1.2-3.4); Lymphocytes % (auto) 27.1 %; Mean Corpuscular Hemoglobin 32.5 pg (25.0-34.0); Mean Corpuscular Hgb Conc 35.1 g/dL (32.0-36.0); Mean Corpuscular Volume 92.6 fL (80.0-100.0); Mean Platelet Volume 9.2 fL (9.4-12.4); Monocytes # (auto) 0.81 K/uL (0.11-0.59); Monocytes % (auto) 9.9 %; Neutrophils # (auto) 4.77 K/uL (1.40-6.50); Neutrophils % (auto) 58.1 %; Platelet Count 195 K/uL (130-400); RDW Coefficient of Variation 14.2 % (11.5-14.5); RDW Standard Deviation 47.9 fL (36.4-46.3); Red Blood Count 3.91 M/uL (4.70-6.10)
[2023-06-09 08:55] LABS: Albumin Level 2.2 gm/dl (3.4-5.0); BUN Creatinine Ratio 16.8 (10-20); Bilirubin,Total 2.5 mg/dl (0.2-1.0); Calcium 7.8 mg/dl (8.6-10.3); Creatinine Clr Calc Pharmacy 63.2 ml/min; Est GFR (African American) 77.7 ml/min; Globulin 2.2 gm/dl (2.5-4.0); Potassium 3.9 mmol/L (3.5-5.1); Total Protein 4.4 gm/dl (6.0-8.3)
[2023-06-09] MEDS ORDERED: FUROSEMIDE 40 MG TAB PO SCH (09:00)
[2023-06-09] MEDS ORDERED: SPIRONOLACTONE 25 MG TAB PO SCH (09:00)
[2023-06-09 09:09] LABS: INR 1.5 (0.9-1.1)
--- NOTE | 2023-06-09 10:02 | Discharge Summary ---
Date of Service June 09, 2023 Admission HPI Per Admitting Provider Kb is an 87 year old male with a PMH significant for CAD S/P CABG x 4 approximately 30 years ago, HTN, hyperlipidemia, and known liver masses with cirrhotic morphology of the liver who presented to the [facility] at the recommendation of Dr. Chavez due to needing a paracentesis. In the ED the patient was noted to be stable. Labs were significant for an INR of 1.5, sodium of 133, total bili of 2.5, corrected calcium of 9.2. Chest xray was read as "Cardiomegaly with no acute cardiopulmonary abnormality identified.". CT of the abdomen or pelvis with IV con was read as "1. No acute infectious or inflammatory findings are identified in the abdomen or pelvis. 2. Cardiomegaly and small left pleural effusion. 3. The liver is enlarged, markedly heterogeneous, and shows morphologic changes of cirrhosis. 4. Numerous mass lesions are again suggested throughout the liver. Tissue sampling will likely be required for definitive characterization. 5. Moderate volume of abdominopelvic ascites. 6. Colonic diverticulosis without CT evidence of acute diverticulitis. 7. Additional findings as above.". At the time of the exam the patient was lying in bed in no acute distress with his family sitting bedside, history was obtained from all. The patient has been undergoing an extensive workup for his known liver masses. He had a paracentesis on 05/12 which removed approximately 800 mL of cloudy yellow ascitic fluid; review of the cultured fluids shows no growth. He also underwent biopsy of his hepatic lesions which was sent to the [facility] for further evaluation. He states that his abdomen has been getting progressively more full since his last paracentesis. He denies any complications after the first paracentesis. He states that he has not taken his losartan over the past 2-3 days as his systolic BP has been in the low 100's. When asked, he notes mild dizziness while going from lying to sitting, and sitting to standing. He denies syncope and states that these symptoms quickly resolve with rest. He has still been taking his lasix daily. He and his family would prefer he be observed overnight after his paracentesis and while starting spironolactone in case he becomes hypotensive. He notes some early satiety recenty with his enlarged abdomen but denies any dysphagia and vomiting. He feels as though his LE's have been more swollen as well. He denies recent fever, chills, chest pain, cough, SOB, abd pain, nasuea, vomiting, dysuria, hematuria melena, bloody BM's, and recent trauma. We discussed code status, he wishes to be a conditional code with a trial of intuba tion only in the event of respiratory failure. He would not want CPR or Defibrillation in the event of cardiac arrest. Please refer to Dr. Alcala's attestation for any changes to the treatment plan Admission Exam Per Admitting Provider Physical Exam: General:In no acute distress, stated age, well-nourished, good hygiene, non- toxic appearing HEENT:Normocephalic, atraumatic, no scleral icterus, pupils around round, symmetrical, and reactive to light, moist mucus membranes, trachea midline, no thyromegaly Chest/Pulm:No respiratory distress, symmetrical chest expansion, clear breath sounds throughout Cardiac:RRR, no murmurs noted Abdomen:Mild-moderate ascites without bruising, normoactive bowel sounds, soft, non-tender to palpation throughout Musculoskeletal:Symmetrical and without signs of acute trauma, upper and lower extremities with full ROM, no atrophy, spasticity, or flaccidity Extremities:Radial, dorsalis pedis, and posterior tibial pulses are intact and symmetrical, 2+ pitting edema noted in the BL LE's Skin:Warm, dry, no rashes , lesions, or scars noted Neuro:Alert and oriented to person, place, month, year, and president, no focal defects, no tremors noted Psych:No acute distress, calm and cooperative during the exam Principal Diagnosis Abdominal Ascites Discharge Exam General: WD chronically ill appearing male resting in bed, NAD HEENT: head normocephalic, atraumatic, mmm, trachea midline, slightly hard of hearing Resp: CTA, slightly diminished in the bases, no obvious w/c, on room air CV: RRR, no significant m/r/g, 1+ b/l LE edema GI: +BS, soft, no overt tenderness,no guarding/rigidity MSK/Neuro: no focal deficit, no slurred speech, following commands as able Psych: AOx3, cooperative with exam Discharge Data Allergies Allergy/AdvReac Type Severity Reaction Status Date / Time oxycodone [From OxyContin] AdvReac Intermediate Vomiting Verified 06/08/23 09:38 Consultations 06/08/23 11:25 ED Decision to Admit Stat Ordered Studies Chest X-Ray 06/08/23 09:19 SINGLE VIEW CHEST CLINICAL HISTORY: Dyspnea FINDINGS: An AP, portable, upright chest radiograph is compared to chest x-ray and chest CT dated 05/02/2023. The patient is status post midline sternotomy. The heart is enlarged noting atherosclerotic calcification of the thoracic aorta. The pulmonary vasculature is noncongested. A large density along the right superior mediastinal border corresponds to thyroid goiter when correlated with the recent chest CT. There is bibasilar scarring/atelectasis. No airspace consolidation or large pleural effusion is identified. No pneumothorax is seen. The skeletal structures are osteopenic. The bony thorax is grossly intact. Surgical clips are noted in the upper abdomen. IMPRESSION: Cardiomegaly with no acute cardiopulmonary abnormality identified. ACT 112: Negative or not required by law. Electronically signed by: Washington Anna M.D. 06/08/2023 9:44 AM Abdomen/Pelvis CT 06/08/23 09:51 CT SCAN OF THE ABDOMEN AND PELVIS WITH IV CONTRAST CLINICAL HISTORY: Upper abdominal pain. Liver lesions. COMPARISON STUDY: Abdominal CT dated 05/02/2023. Abdominal MRI dated 05/13/2023. TECHNIQUE: Following the IV administration of 90 of Optiray 350, CT scan of the abdomen and pelvis was performed from the lung bases to the proximal femora. Images are reviewed in the axial, sagittal, and coronal planes. IV contrast was administered without complication. A dose lowering technique was utilized adhering to the principles of ALARA. CT DOSE: 1548.37 mGy.cm FINDINGS: Lower chest: The patient is status post midline sternotomy. The heart is enlarged and without pericardial effusion. The coronary arteries are densely calcified. There is a small left pleural effusion with left basilar atelectasis. No airspace consolidation is seen typical for pneumonia. A fat-containing Bochdalek hernia is seen on the right. Liver: The contrast-enhanced liver is enlarged, measuring 19.8 cm in length. Hepatic attenuation is markedly heterogeneous. Nodularity of the surface contour indicates morphologic changes of cirrhosis. There is minimal central intrahepatic biliary ductal dilatation. The hepatic veins and portal veins are patent. Numerous hepatic mass lesions are again suggested. Gallbladder: Surgically absent noting clips in the gallbladder fossa. Spleen: Normal in size and attenuation. Pancreas: Unremarkable. Adrenal glands: Unremarkable. Kidneys: The contrast enhanced kidneys demonstrate mild cortical atrophy and are without hydronephrosis. The kidneys enhance symmetrically. Scattered subcentimeter cortical hypodensities likely represent cysts but are too small for definitive characterization. Abdominal vasculature: The abdominal aorta is normal in course and caliber noting moderate atherosclerotic calcification. Bowel: Numerous surgical clips are seen around the stomach. There is no bowel obstruction. There is moderate to advanced colonic diverticulosis without CT evidence of acute diverticulitis. Mild fecal retention is seen throughout the colon. The appendix is not identified and reported surgically absent. Peritoneum: There is a moderate volume of abdominopelvic ascites. Nodular peritoneal free air is seen. There is a small fat-containing umbilical hernia. Lymphadenopathy: None. Pelvic viscera: The prostate gland is enlarged and heterogeneous noting median lobe hypertrophy. The bladder wall is thickened/trabeculated indicating chronic outlet obstruction. There is a fat-containing right inguinal hernia, as well as evidence of previous right inguinal herniorrhaphy. Skeletal structures: The skeletal structures are osteopenic. There is mild to moderate lumbosacral spondylosis. No lytic or blastic lesions are seen. Soft tissues: There is mild body wall edema. IMPRESSION: 1. No acute infectious or inflammatory findings are identified in the abdomen or pelvis. 2. Cardiomegaly and small left pleural effusion. 3. The liver is enlarged, markedly heterogeneous, and shows morphologic changes of cirrhosis. 4. Numerous mass lesions are again suggested throughout the liver. Tissue sampling will likely be required for definitive characterization. 5. Moderate volume of abdominopelvic ascites. 6. Colonic diverticulosis without CT evidence of acute diverticulitis. 7. Additional findings as above. ACT 112: Negative or not required by law. Electronically signed by: Washington Anna M.D. 06/08/2023 10:37 AM Paracentesis Ultrasound 06/08/23 10:25 Ultrasound-guided diagnostic paracentesis INDICATION: Ascites PROCEDURE: Procedure and risks were explained. Informed consent was obtained. A final timeout was completed. The left lower quadrant was prepped and draped in sterile fashion. 1% buffered lidocaine was utilized for skin anesthesia. Utilizing ultrasound guidance, a 5 Bengali safety centesis catheter was advanced into the pocket of ascites. Ultrasound images were obtained. A total of 2.7 L of a cloudy elzbieta-colored ascites fluid was removed, with 1 L sent to lab for analysis. The catheter was removed and Band-Aid applied. The patient tolerated procedure well. Vital signs will be monitored post procedure. IMPRESSION: Paracentesis as above. Performed, dictated, and signed by Leonard Torres PA-C; to be co-signed by Dr. Danilo Leija. Electronically signed by: Danilo Leija M.D. 06/08/2023 4:07 PM Hospital Course (1) Abdominal ascites: [facility] ED [facility] due to concerns for worsening ascites, need for paracentesis, and concerns of hypotension post paracentesis with starting spironolactone CTAP w/ known cirrhosis of liver, liver masses and moderate ascites IR contacted for paracentesis s/p paracentesis for 2.7 L on 06/08. Cytology pending at discharge Tolerating increased lasix to 40mg daily, spironolactone 25mg daily -- new rxs sent at discharge Discontinued further losartan to prevent hypotension/orthostasis issues given need for diuretics/ascites and no issues w/ hypotension/orthostasis reported PT eval placed, will be completed prior to discharge -- discussed w/ aide, patient did well. No needs at discahrge Discussed can further titrate diuretics as able for volume management as BP allows F/u Dr Chavez at discharge (2) Cirrhosis of liver: No signs of encephalopathy or significant decompensation s/p paracentesis as above, new start spironolactone and discontinued losartan Lasix increased from 20 to 40mg daily, kidney function and BPs stable/no symptoms and continued at discharge (3) Bilateral edema of lower extremity: Likely due to his known cirrhosis Improvement on exam on repeat, diuretics adjusted as above and f/u outpatient for further titrations as able (4) Liver masses: Continue to follow with heme/onc at discharge (5) Hypertension: Hold losartan to prevent hypotension on admission --> DISCONTINUED ABOVE Lasix increased and added spironolactone and BPs stable 111/64 without reported symptoms and continued diuretics at discharge as above (6) S/P CABG (coronary artery bypass graft): Stable, no CP reported Continued on aspirin Total Time Total Time Spent Total Time Spent (In Minutes): 45 Discharge Plan Discharge Items Patient Disposition: Home - Self-Care Reason For Visit: NEED FOR PARACENTESIS Discharge Diagnosis: Ascites Goals: You have been hospitalized for an acute medical problem. During your stay at [facility], we have made an effort to correct the problem that brought you to the hospital while keeping you as comfortable as possible. Medications were used to bring your condition under control and your discharge instructions will include directions for any medications you should take after leaving the hospital. Please make sure you see your Primary Care Provider as part of your follow up plan. Activity: As commented below Non-emergency contact: Primary Care Provider and Oncologist Call non-emergency contact if: you have any medication questions, your symptoms worsen, your pain is not controlled and you have a fever Follow-up/Referrals: Rusty Willis MD [Primary Care Provider] - 06/14/23 11:00 am Christiane Chavez MD [Physician] - 06/21/23 3:10 pm Diet: Heart Healthy and Low Sodium (2gm) Addtl Attending Provider Instructions: You have been hospitalized for abdominal ascites (fluid in your belly). You underwent a paracentesis for removal of 2.7 liters of fluid and this fluid was sent for analysis and can have follow up with Dr Chavez regarding this. GIven reaccumulation of ascites/fluid and issues with low blood pressures, we have made adjustments to your medications at discharge as follows: - STOP losartan 25mg - START spironolactone 25mg daily - INCREASE furosemide (lasix) to 40mg daily Check blood pressures at home. If experiencing any lightheaded/dizziness, call your doctor please. Hopefully you will be able to tolerate this medications well and can potentially have these increased in the next couple of weeks as tolerated in follow up with primary care and Dr Chavez. Please return to the ER with any symptoms concerning for you, fever, chills, chest pain, shortness of breath, etc. It has been a pleasure being a part of the medical team providing for you while you have been in the hospital. Take care! Pending Studies at Discharge: Yes Studies:: cytology from paracentesis Stand-Alone Forms: My [facility], Smoking Cessation Medications and DC Order Prescriptions: New spironolactone 25 mg Tablet 25 mg PO QAM 30 Days Qty: 30 1RF Continued lorazepam 1 mg tablet 1 mg PO HS PRN (Reason: Sleep) simvastatin 10 mg tablet 10 mg PO HS aspirin 81 mg Tablet,Delayed Release (Dr/Ec) 162 mg PO HS cholecalciferol (vitamin D3) [Vitamin D3] 50 mcg (2,000 unit) Capsule 50 mcg PO DAILY Changed furosemide 20 mg tablet 40 mg PO DAILY Qty: 60 0RF Discontinued losartan 25 mg tablet 25 mg PO QAM Discharge Orders: Discharge Order (Routine); Ordered 06/09/23 Ordered By: Amanda Quijano Admission Data Admit Date/Time: 06/08/23 11:57 Attending Provider: Jcarlos Buenrostro Admit Provider: Maged Alcala Primary Care Provider: Rusty Willis Other Providers: Maged Alcala Supervising Physician Co-Signing Physician Notes The patient was not seen by me. The chart was reviewed. Case discussed with TESSIE Aguilera. Agree with assessment and plan Coding Level of Care Code 98668 INP/OBS DISCH >30 MIN Diagnoses Abdominal ascites R18.0 Ascites type: malignant Cirrhosis of liver K74.60 Bilateral edema of lower extremity R60.0 Liver masses R16.0 Hypertension I10 S/P CABG (coronary artery bypass graft) Z95.1
== END 2023-06-09 14:03 | disposition home or self-care (01) ==
LOC: 3N 09:07 → ED 09:07 → SUATTDRO 11:57 → 3N 14:06